=== PATIENT | female | born 1955 | race Caucasian/White ===

== ENCOUNTER 2019-10-28 19:47 | Observation (INO) ==
[2019-10-28] MEDS ORDERED: Aspirin 325 MG TABLET PO ONE (20:06)
[2019-10-28] MEDS ORDERED: Nitroglycerin 0.4 MG TAB.SUBL SL ONE (20:07)
[2019-10-28] MEDS ORDERED: Aspirin 81 MG TAB.CHEW PO STA (20:17)
[2019-10-28 20:45] LABS: Hematocrit 39.9 % (35.3-44.9); Mean Corpuscular HGB Conc 32.6 g/dL (31.6-35.5); Mean Corpuscular Hemoglobin 32.2 pg (28.0-33.3); Mean Corpuscular Volume 98.8 fL (83.0-100.0); Mean Platelet Volume 10.3 fL (9.4-12.4); Platelet Count 238 K/mcL (140-400); Red Blood Count 4.04 M/mcL (3.82-4.97); Red Cell Distribution Width 12.9 % (11.5-14.5)
[2019-10-28 20:47] LABS: White Blood Count 41.1 K/mcL (4.3-11.1)
[2019-10-28 21:08] LABS: Alanine Aminotransferase 45 Units/L (7-52); Albumin 4.3 g/dL (3.5-5.7); Alkaline Phosphatase 91 Units/L (34-104); Aspartate Amino Transferase 40 Units/L (13-39); BUN/Creatinine Ratio 21 (6-26); Bilirubin,Total 0.2 mg/dL (0.3-1.0); Blood Urea Nitrogen 16 mg/dL (8-23); Calcium 9.1 mg/dL (8.6-10.3); Carbon Dioxide 26 mEq/L (23-29); Chloride 99 mEq/L (98-107); Globulin 2.2 g/dL (2.4-3.5); Glucose 118 mg/dL (70-105); Osmolality,Calculated 280 (280-300); Potassium 4.3 mEq/L (3.5-5.1); Sodium 134 mEq/L (136-145); Total Protein 6.5 g/dL (6.4-8.9); Troponin I < 0.03 ng/mL (< 0.04); eGFR For African Americans > 60 (> 60); eGFR For Non-African Americans > 60 (> 60)
[2019-10-28 21:14] LABS: Bilirubin,Urine Negative (Negative); Blood,Urine Negative (Negative); Clarity,Urine Clear (Clear); Color,Urine Yellow (Yellow); Glucose,Urine (UA) 500 mg/dL (Normal); Ketones,Urine Negative (Negative); Leukocyte Esterase,Urine Small (Negative); Nitrite,Urine Negative (Negative); Protein,Urine Negative (Neg-Trace); Urobilinogen,Urine Normal (Normal)
[2019-10-28] MEDS ORDERED: 0.9 % Sodium Chloride 500 ML IVC ONE (21:22)
[2019-10-28 21:29] LABS: Renal Epithelial Cells,Urine Few per hpf (None-Few)
[2019-10-28 21:30] LABS: WBC,Urine 0-3 per hpf (0-3)
[2019-10-28 22:10] LABS: Hematocrit 38.6 % (35.3-44.9); Immature Granulocytes % 0.3 % (0-4); Lymphocytes % 79.7 %
[2019-10-28 22:12] LABS: Basophils # 0.2 K/mcL (0.0-0.2); Basophils % 0.5 %; Eosinophils # 0.5 K/mcL (0.0-0.6); Eosinophils % 1.3 %; Hemoglobin 12.4 g/dL (11.5-15.4); Mean Corpuscular HGB Conc 32.1 g/dL (31.6-35.5); Mean Corpuscular Hemoglobin 31.7 pg (28.0-33.3); Mean Corpuscular Volume 98.7 fL (83.0-100.0); Mean Platelet Volume 10.8 fL (9.4-12.4); Monocytes % 2.4 %; Neutrophils # 6.2 K/mcL (1.6-8.9); Platelet Count 231 K/mcL (140-400); Red Blood Count 3.91 M/mcL (3.82-4.97); Red Cell Distribution Width 13.1 % (11.5-14.5); Segmented Neutrophils % 15.8 %
[2019-10-28 22:17] LABS: Lymphocytes # 31.2 K/mcL (0.6-4.6); Monocytes # 0.9 K/mcL (0.0-1.3); White Blood Count 39.2 K/mcL (4.3-11.1)
[2019-10-29] MEDS ORDERED: Naloxone 0.4 MG/ML INJ IVP PRN (00:04)
[2019-10-29] MEDS ORDERED: Dextrose Gel 15 GM/37.5 ML TUBE PO PRN ×2 (00:08)
[2019-10-29] MEDS ORDERED: *HR* Dextrose 50 % in Water (Syg) 50 ML SYRINGE IVP PRN (00:08)
[2019-10-29] MEDS ORDERED: D5% in Water 1,000 ML IVC PRN (00:08)
[2019-10-29] MEDS ORDERED: *HR* Heparin 5,000 UNIT/ML VIAL SQ SCH (06:00)
[2019-10-29 08:37] LABS: Basophils # 0.2 K/mcL (0.0-0.2); Basophils % 0.5 %; Eosinophils # 0.4 K/mcL (0.0-0.6); Eosinophils % 1.2 %; Hematocrit 39.4 % (35.3-44.9); Immature Granulocytes % 0.2 % (0-4); Lymphocytes % 81.8 %; Mean Corpuscular Hemoglobin 32.2 pg (28.0-33.3); Mean Corpuscular Volume 97.5 fL (83.0-100.0); Mean Platelet Volume 10.3 fL (9.4-12.4); Monocytes # 0.8 K/mcL (0.0-1.3); Monocytes % 2.3 %; Neutrophils # 4.9 K/mcL (1.6-8.9); Platelet Count 224 K/mcL (140-400); Red Blood Count 4.04 M/mcL (3.82-4.97)
[2019-10-29 08:38] LABS: Lymphocytes # 28.6 K/mcL (0.6-4.6)
[2019-10-29 08:57] LABS: BUN/Creatinine Ratio 18 (6-26); Blood Urea Nitrogen 13 mg/dL (8-23); Carbon Dioxide 26 mEq/L (23-29); Chloride 102 mEq/L (98-107); Glucose 131 mg/dL (70-105); Osmolality,Calculated 286 (280-300); Potassium 4.2 mEq/L (3.5-5.1); Sodium 137 mEq/L (136-145); Troponin I < 0.03 ng/mL (< 0.04); eGFR For African Americans > 60 (> 60); eGFR For Non-African Americans > 60 (> 60)
[2019-10-29] MEDS ORDERED: Propranolol LA (24 HR) 80 MG CAP.SA.24H PO SCH (09:00)
[2019-10-29] MEDS ORDERED: Primidone 50 MG TABLET PO SCH (09:00)
[2019-10-29] MEDS: Insulin LISPRO 300 UNITS/3 ML VIAL SQ SCH ×2 (09:34→12:04)
[2019-10-29 09:58] LABS: Platelet Estimate Normal (Normal); Smudge Cells Present (Not Present)
[2019-10-29 10:57] VITALS: BP 141/81
[2019-10-29] MEDS ORDERED: Insulin LISPRO 300 UNITS/3 ML VIAL SQ SCH (21:00)
== END 2019-10-29 15:23 | disposition home or self-care (01) ==
LOC: EMEROOARM 19:47 → 3BNU 19:47 → SUATTDRO 22:45 → 3BNU 23:00
PROVIDERS: ADMIT Family Medicine; ATTEND Internal Medicine